=== PATIENT | female | born 2000 | race African-American/Black ===

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

== ENCOUNTER 2025-10-12 18:38 | Emergency (ER) | payer OTHER ==
[~2025-10-12] VITALS: Ht 162.5 cm; Wt 49.9 kg
[~2025-10-12 18:38] MED LIST: ERYTHROMYCIN OPH1 GM OPH; IBUPROFEN600 MG PO
[2025-10-12 18:54] VITALS: BP 112/79
[2025-10-12 19:30] LABS: BILIRUBIN Negative (Negative); BLOOD 1+ (Negative); CLARITY Cloudy (Clear); COLOR Yellow (Yellow); KETONE Negative (Negative); LEUKO ESTERASE 2+ (Negative); NITRITE Negative (Negative); PH 6.0 (4.5-8.0); SPECIFIC GRAVITY 1.025 (1.001-1.030); UROBILINOGEN 1.0 E.U./dl (0.0-1.0)
[2025-10-12 19:52] LABS: BASO # 0.1 10*3/uL (0.0-0.1); BASO % 0.5 % (0.0-1.0); EOS # 0.3 10*3/uL (0.0-0.4); EOS % 2.2 % (1.0-4.0); MEAN CELL VOLUME 82.8 fl (81.0-99.0); MEAN CORPUSCULAR HGB 24.9 pg (27.0-31.0); MEAN PLATELET VOLUME 8.1 fl (9.6-12.3); MONO # 0.9 10*3/uL (0.1-1.0); MONO % 7.4 % (3.0-9.0); NEUT # 7.7 10*3/uL (2.3-7.9); NEUT % 67.3 % (47.0-73.0); NUCLEATED RED BLOOD CELL 0.0 % (0.0-0.0); NUCLEATED RED BLOOD CELL 0.0 10*3/uL (0.0-0.0); PLATELET COUNT AUTOMATED 736 10*3/uL (130-400); RED CELL DISTRI WIDTH 15.9 % (0-14.5)
[2025-10-12 20:10] LABS: BACTERIA 2+; EPITHELIAL CELLS 21-30; MUCOUS 3+; WBC 41-50 wbc/hpf (0-5)
[2025-10-12 20:15] LABS: BUN 10 mg/dl (9-23)
[2025-10-12] MEDS ORDERED: Ciprofloxacin Hydrochloride 500 MG TAB PO ONE (20:20)
[2025-10-12] MEDS ORDERED: CIPRO500 MG PO (20:34)
== END 2025-10-12 20:43 | disposition home or self-care (01) ==
LOC: ED 18:38
PROVIDERS: Internal Medicine
DX: N39.0 Urinary tract infection, site not specified (principal); D64.9 Anemia, unspecified; D75.839 Thrombocytosis, unspecified

== ENCOUNTER 2025-10-13 03:20 | Emergency (ER) | payer OTHER ==
[~2025-10-13 03:20] MED LIST changes: +CIPRO500 MG PO
[2025-10-13 03:30] VITALS: BP 117/68
[2025-10-13] MEDS ORDERED: Ciprofloxacin Hydrochloride 500 MG TAB PO ONE (03:35)
== END 2025-10-13 05:02 | disposition home or self-care (01) ==
LOC: ED 03:20
DX: R30.9 Painful micturition, unspecified (principal); Z03.89 Encounter for observation for other suspected diseases and conditions ruled out

== ENCOUNTER 2025-10-17 11:53 | Emergency (ER) | payer OTHER ==
[~2025-10-17] VITALS: Ht 162.5 cm; Wt 49.9 kg
[2025-10-17] MEDS ORDERED: IOHEXOL 300 MG/ML 100 ML VIAL IV ONE (12:25)
[2025-10-17] MEDS ORDERED: SODIUM CHLORIDE 0.9% 1,000 ML IV ONE ×2 (12:25→17:05)
[2025-10-17] MEDS ORDERED: HYDROmorphONE Hydrochloride 0.5 MG/0.5 ML SYRINGE IV ONE (12:25)
[2025-10-17] MEDS ORDERED: Ondansetron Hydrochloride 4 MG/2 ML VIAL IV ONE (12:25)
[2025-10-17 12:26] LABS: BILIRUBIN Negative (Negative); BLOOD 3+ (Negative); CLARITY Turbid (Clear); COLOR Red (Yellow); KETONE Trace (Negative); LEUKO ESTERASE 2+ (Negative); NITRITE Negative (Negative); PH 5.5 (4.5-8.0); SPECIFIC GRAVITY 1.025 (1.001-1.030); UROBILINOGEN 1.0 E.U./dl (0.0-1.0)
[2025-10-17 12:35] LABS: BACTERIA 2+; EPITHELIAL CELLS 21-30; RBC TNTC rbc/hpf (0-2); WBC 31-40 wbc/hpf (0-5)
[2025-10-17 12:38] LABS: BASO # 0.0 10*3/uL (0.0-0.1); BASO % 0.3 % (0.0-1.0); EOS # 0.1 10*3/uL (0.0-0.4); EOS % 0.7 % (1.0-4.0); MEAN CELL VOLUME 80.9 fl (81.0-99.0); MEAN CORPUSCULAR HGB 24.1 pg (27.0-31.0); MEAN PLATELET VOLUME 8.1 fl (9.6-12.3); MONO # 1.2 10*3/uL (0.1-1.0); MONO % 10.2 % (3.0-9.0); NEUT # 7.9 10*3/uL (2.3-7.9); NEUT % 68.8 % (47.0-73.0); NUCLEATED RED BLOOD CELL 0.0 % (0.0-0.0); NUCLEATED RED BLOOD CELL 0.0 10*3/uL (0.0-0.0); PLATELET COUNT AUTOMATED 771 10*3/uL (130-400); RED CELL DISTRI WIDTH 16.2 % (0-14.5)
[2025-10-17 12:48] LABS: ACT PARTIAL THROMBO TIME 26.1 SECONDS (20.0-32.1)
[2025-10-17 12:59] LABS: BUN 12 mg/dl (9-23)
[2025-10-17 13:00] LABS: BETA-HCG, QUANT < 3.0 mIU/mL (3-10); SGPT/ALT < 7 U/L (5-49)
[2025-10-17 15:37] VITALS: BP 105/70
== END 2025-10-17 17:49 | disposition short-term general hospital (02) ==
LOC: ED 11:53
PROVIDERS: Nurse Practitioner Family
DX: O03.4 Incomplete spontaneous abortion without complication (principal); D64.89 Other specified anemias; Z87.440 Personal history of urinary (tract) infections